=== PATIENT | female | born 1980 | race Caucasian/White ===

== ENCOUNTER → 2020-12-14 | Outpatient (CLI) | payer MEDICARE ==
[~2020-12-14] VITALS: Ht 172.7 cm; Wt 79.5 kg
[~2020-12-14] MED LIST: ACET250T3 PO; AMIT25TA9 PO; CEPH500C PO; DCS100C PO; IBUP-1773 PO; LIDOCAINE 1% INJ 20 ML 20 ML VIAL INJ ONE; OXYC-12 PO; OXYC-309 PO; PREN-115 PO
--- NOTE | 2020-12-14 13:03 | Diagnostic Imaging Report ---
INDICATION: Left breast nodule. PROCEDURE: The patient presents for ultrasound-guided biopsy. The patient was brought to the ultrasound room, placed on the table in the supine position. Ultrasound imaging of the left breast was performed to evaluate appropriate entry site. The left breast was then prepped and draped in the usual sterile fashion. A small amount of 1% lidocaine was utilized for local anesthesia. Multiple core biopsies of the hypoechoic nodule at the 11:00 location left breast, 5 cm from the nipple, was obtained utilizing the 13-gauge vacuum-assisted handheld mammotome device. A marker clip was then deployed. Hemostasis was obtained using manual compression. The patient tolerated the procedure well was sent for post procedure mammogram in satisfactory condition. IMPRESSION: Successful ultrasound-guided core biopsy of the hypoechoic nodule at the 11:00 location of the left breast, 5 cm from the nipple, utilizing the vacuum-assisted handheld mammotome device. Pathology results are currently pending. Dictated by: Dictated on workstation # [id number]
--- NOTE | 2020-12-14 15:47 | Diagnostic Imaging Report ---
INDICATION: Left breast biopsy with ultrasound. Unilateral left 2-D CC and ML mammography was performed after patient underwent left breast biopsy. There is a marker clip in the upper central left breast mid depth, status post ultrasound-guided biopsy. IMPRESSION: Clip placement during left breast ultrasound-guided biopsy. Dictated by: Dictated on workstation # [id number]
== END ==
LOC: RAD 11:00
PROVIDERS: ATTEND Nurse Practitioner Family
DX: N63.22 Unspecified lump in the left breast, upper inner quadrant (principal); Z80.3 Family history of malignant neoplasm of breast
CPT/HCPCS: 19083; 77065; G0279